=== PATIENT | female | born 1945 | race Hispanic/Latino ===

== ENCOUNTER → 2017-09-20 | Outpatient (CLI) | payer OTHER, MEDICARE | END | disposition home or self-care (01) | LOC: RAH 10:37 | PROVIDERS: ATTEND Family Medicine | DX: Z12.31 Encounter for screening mammogram for malignant neoplasm of breast (principal) | CPT/HCPCS: 77067 ==

== ENCOUNTER 2018-03-06 20:42 | Emergency (ER) | payer MEDICARE ==
[2018-03-06] MEDS ORDERED: MORPHINE SULFATE 4 MG/1ML SYG ONE ×2 (21:47→23:48)
[2018-03-06] MEDS ORDERED: ONDANSETRON HCL 4 MG/2 ML VIAL ONE (22:06)
[2018-03-06 22:17] LABS: BASOPHILS % (AUTO) 0.2 % (0.0-5.0); HEMATOCRIT 33.3 % (36-48); LYMPHOCYTES % (AUTO) 22.8 % (21.0-51.0); MEAN CORPUSCULAR HEMOGLOBIN 25.3 pg (27.0-33.0); MEAN CORPUSCULAR HGB CONC 32.8 g/dL (32.0-36.0); MEAN CORPUSCULAR VOLUME 77.3 fL (79-99); MONOCYTES % (AUTO) 7.3 % (3.0-13.0); NEUTROPHILS % (AUTO) 68.7 % (40.0-77.0); PLATELET COUNT (AUTO) 272 K/uL (130-400); RED CELL DISTRIBUTION WIDTH 21.6 % (11.0-15.5); WHITE BLOOD COUNT (AUTO) 11.6 K/uL (4.8-10.8)
[2018-03-06 22:30] LABS: POTASSIUM 4.4 mmol/L (3.5-5.1)
[2018-03-06 22:39] LABS: ALBUMIN 3.9 g/dL (3.5-5.0); BILIRUBIN,TOTAL 0.3 mg/dL (0.2-1.0); TOTAL PROTEIN, SERUM 7.9 g/dL (6.0-8.3)
[2018-03-06] MEDS ORDERED: ORPHENADRINE CITRATE 30 MG/ML ML ONE (23:47)
[2018-03-06] MEDS ORDERED: LIDOCAINE 5% TOPICAL PATCH TP ONE (23:48)
== END 2018-03-07 01:24 | disposition home or self-care (01) ==
LOC: EDH 20:42
DX: S06.0X1A Concussion with loss of consciousness of 30 minutes or less, initial encounter (principal); S30.0XXA Contusion of lower back and pelvis, initial encounter; S00.03XA Contusion of scalp, initial encounter; E11.9 Type 2 diabetes mellitus without complications; I10 Essential (primary) hypertension; E78.5 Hyperlipidemia, unspecified; K21.9 Gastro-esophageal reflux disease without esophagitis; W01.0XXA Fall on same level from slipping, tripping and stumbling without subsequent striking against object, initial encounter; Y93.89 Activity, other specified; Y92.89 Other specified places as the place of occurrence of the external cause; Y99.8 Other external cause status
CPT/HCPCS: 36415; 70450; 72100; 72170; 80053; 82550; 85025; 96374; 96375 ×2; 96376; 99284; J2270 ×2; J2360; J2405

== ENCOUNTER 2018-07-16 17:21 | Emergency (ER) | payer OTHER, MEDICARE ==
[2018-07-16] MEDS ORDERED: KETOROLAC TROMETHAMINE 30MG/ML ONE (17:58)
[2018-07-16] MEDS ORDERED: MORPHINE SULFATE 4 MG/1ML SYG ONE (17:58)
[2018-07-16 18:15] LABS: BASOPHILS % (AUTO) 0.5 % (0.0-5.0); EOSINOPHILS % (AUTO) 0.3 % (0.0-8.0); MEAN CORPUSCULAR HEMOGLOBIN 26.2 pg (27.0-33.0); MEAN CORPUSCULAR HGB CONC 32.4 g/dL (32.0-36.0); MEAN CORPUSCULAR VOLUME 80.8 fL (79-99); MONOCYTES % (AUTO) 8.2 % (3.0-13.0); PLATELET COUNT (AUTO) 296 K/uL (130-400); RED BLOOD CELL COUNT(AUTO) 4.08 MIL/uL (4.00-5.50); RED CELL DISTRIBUTION WIDTH 16.5 % (11.0-15.5); WHITE BLOOD COUNT (AUTO) 11.2 K/uL (4.8-10.8)
[2018-07-16 18:24] LABS: POTASSIUM 4.3 mmol/L (3.5-5.1)
[2018-07-16 18:29] LABS: ALBUMIN 3.6 g/dL (3.5-5.0); BILIRUBIN,TOTAL 0.2 mg/dL (0.2-1.0); TOTAL PROTEIN, SERUM 7.4 g/dL (6.0-8.3)
== END 2018-07-16 19:10 | disposition home or self-care (01) ==
LOC: EDH 17:21
DX: S80.01XA Contusion of right knee, initial encounter (principal); K21.9 Gastro-esophageal reflux disease without esophagitis; E11.9 Type 2 diabetes mellitus without complications; I10 Essential (primary) hypertension; M19.90 Unspecified osteoarthritis, unspecified site; M81.0 Age-related osteoporosis without current pathological fracture; W01.0XXA Fall on same level from slipping, tripping and stumbling without subsequent striking against object, initial encounter; Y93.89 Activity, other specified; Y92.098 Other place in other non-institutional residence as the place of occurrence of the external cause; Y99.8 Other external cause status
CPT/HCPCS: 36415; 73562; 80053; 85025; 93971; 96374; 96375; 99284; J1885; J2270

== ENCOUNTER 2018-08-12 17:04 | Emergency (ER) | payer OTHER, MEDICARE ==
[2018-08-12 17:37] LABS: BASOPHILS % (AUTO) 0.6 % (0.0-5.0); EOSINOPHILS % (AUTO) 0.4 % (0.0-8.0); HEMATOCRIT 32.5 % (36-48); LYMPHOCYTES % (AUTO) 17.5 % (21.0-51.0); MEAN CORPUSCULAR HEMOGLOBIN 25.7 pg (27.0-33.0); MEAN CORPUSCULAR HGB CONC 32.4 g/dL (32.0-36.0); MEAN CORPUSCULAR VOLUME 79.4 fL (79-99); MONOCYTES % (AUTO) 8.1 % (3.0-13.0); NEUTROPHILS % (AUTO) 73.4 % (40.0-77.0); PLATELET COUNT (AUTO) 381 K/uL (130-400); RED CELL DISTRIBUTION WIDTH 16.6 % (11.0-15.5); WHITE BLOOD COUNT (AUTO) 12.3 K/uL (4.8-10.8)
[2018-08-12 17:46] LABS: INR 0.97 (0.85-1.15); PARTIAL THROMBOPLASTIN TIME 31.1 SEC (26.3-35.5); POTASSIUM 4.3 mmol/L (3.5-5.1); PROTHROMBIN TIME 10.2 SEC (9.6-11.6)
[2018-08-12 17:50] LABS: ALBUMIN 3.1 g/dL (3.5-5.0); BILIRUBIN,TOTAL 0.3 mg/dL (0.2-1.0); TOTAL PROTEIN, SERUM 8.6 g/dL (6.0-8.3)
[2018-08-12] MEDS ORDERED: HYDROCODONE/ACETAMINOPHEN 5/325 MG TAB ONE (18:25)
== END 2018-08-12 19:51 | disposition home or self-care (01) ==
LOC: EDH 17:04
DX: S06.0X0A Concussion without loss of consciousness, initial encounter (principal); S16.1XXA Strain of muscle, fascia and tendon at neck level, initial encounter; G89.29 Other chronic pain; M25.561 Pain in right knee; E11.9 Type 2 diabetes mellitus without complications; K21.9 Gastro-esophageal reflux disease without esophagitis; E78.5 Hyperlipidemia, unspecified; I10 Essential (primary) hypertension; M81.0 Age-related osteoporosis without current pathological fracture; W18.39XA Other fall on same level, initial encounter; Y93.01 Activity, walking, marching and hiking; Y92.090 Kitchen in other non-institutional residence as the place of occurrence of the external cause; Y99.8 Other external cause status
CPT/HCPCS: 36415; 70450; 72125; 73562; 80053; 84484; 85025; 85610; 85730; 93005

== ENCOUNTER → 2019-02-13 | Outpatient (CLI) | payer OTHER, MEDICARE | END | disposition home or self-care (01) | LOC: RAH 12:41 | PROVIDERS: ATTEND Family Medicine | DX: Z12.31 Encounter for screening mammogram for malignant neoplasm of breast (principal) | CPT/HCPCS: 77067 ==